=== PATIENT | male | born 2005 | race Caucasian/White ===

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

== ENCOUNTER 2025-01-22 10:01 | Emergency (ER) | payer SELFPAY ==
[~2025-01-22] VITALS: Ht 175.3 cm; Wt 75.0 kg
[2025-01-22 10:10] VITALS: BP 147/69; PULSE 69; RESP 17; O2SAT 100
[2025-01-22] MEDS: NAPROXEN 250MG TABLET PO ONE (11:47)
[2025-01-22] MEDS ORDERED: NAPR-1486 MT (12:16)
== END 2025-01-22 12:46 | disposition home or self-care (01) ==
LOC: ER 10:34
DX: S52.124A Nondisplaced fracture of head of right radius, initial encounter for closed fracture (principal); V86.56XA Driver of dirt bike or motor/cross bike injured in nontraffic accident, initial encounter; Y93.89 Activity, other specified; Y92.89 Other specified places as the place of occurrence of the external cause; Y99.8 Other external cause status
CPT/HCPCS: 73080; 73130; 29505; 99284; Z7610